=== PATIENT | female | born 1965 | race Caucasian/White ===

== ENCOUNTER → 2016-09-12 | Outpatient (CLI) | payer BC ==
[2016-09-12 15:37] LABS: Blood Urea Nitrogen 21 mg/dL (7-17); Non-African American GFR(MDRD) >60 (>60 ml/min/1.73 sqM)
--- NOTE | 2016-09-12 16:38 | CT ---
EXAMINATION TYPE: CT brain wo/w con DATE OF EXAM: 09/12/2016 4:31 PM COMPARISON: NONE HISTORY: Headache Automated exposure control for dose reduction was used. CONTRAST: 100 mL Omnipaque 300 FINDINGS: There is no abnormal enhancing mass or midline shift identified. The ventricles and sulci are within normal limits in size. The globes are intact and the visualized sinuses are clear. Partially empty sella turcica noted. No enhancing mass. No midline shift. IMPRESSION: No acute process.
== END | disposition home or self-care (01) ==
LOC: RADCTMAIN 15:04
PROVIDERS: ATTEND Family Medicine
DX: R51 Headache (principal); Z13.9 Encounter for screening, unspecified
CPT/HCPCS: 82565; 84520; 70470; 36415; Q9967

== ENCOUNTER → 2016-10-16 | Outpatient (CLI) | payer BC ==
--- NOTE | 2016-10-16 11:03 | MM ---
Reason for exam: history of breast cancer, mastectomy. Last mammogram was performed 1 year and 2 months ago. History: Patient has history of breast cancer at age 49. Mastectomy of the right breast, March 2015. Chemotherapy, September 2014. Malignant MG stereo VAD BX RT of the right breast, August 18, 2014. Malignant US biopsy breast VAD RT of the right breast, August 18, 2014. Taking antineoplastic for 1 year. Physical Findings: Nurse did not find any significant physical abnormalities on exam. MG Diagnostic Mammo LT w CAD CC and MLO view(s) were taken of the left breast. Prior study comparison: August 22, 2015, left breast MG 3d diag mammo w/cad LT. August 18, 2014, right breast MG diagnostic mammo RT w CAD. The breast tissue is extremely dense which could obscure a lesion on mammography. Finding: There are typically benign round calcifications in the left breast. There is no discrete abnormality. ASSESSMENT: Benign, BI-RAD 2 RECOMMENDATION: Follow-up diagnostic mammogram of the left breast in 1 year.
== END | disposition home or self-care (01) ==
LOC: RADMAMWWP 10:19
PROVIDERS: ATTEND Internal Medicine Hematology & Oncology
DX: Z08 Encounter for follow-up examination after completed treatment for malignant neoplasm (principal); Z85.3 Personal history of malignant neoplasm of breast

== ENCOUNTER → 2018-02-06 | Outpatient (CLI) | payer BC ==
--- NOTE | 2018-02-07 07:49 | MM ---
Reason for exam: additional evaluation requested from prior study. Last mammogram was performed 1 year and 4 months ago. History: Patient is postmenopausal and has history of breast cancer at age 49. Family history of breast cancer in 2 maternal cousins. Mastectomy of the right breast, March 2015. Chemotherapy, September 2014. Malignant MG stereo VAD BX RT of the right breast, August 18, 2014. Malignant US biopsy breast VAD RT of the right breast, August 18, 2014. Reconstruction of the right breast. Reduction of the left breast. Taking antineoplastic for 1 year. Physical Findings: Nurse did not find any significant physical abnormalities on exam. MG Diagnostic Mammo LT w CAD CC, MLO, LM, spot compression CC, and spot compression MLO view(s) were taken of the left breast. Prior study comparison: October 16, 2016, left breast MG diagnostic mammo LT w CAD. August 22, 2015, left breast MG 3d diag mammo w/cad LT. 7cm from nipple there is a focal asymmetry that persists on additional views in left upper outer quadrant. These results were verbally communicated with the patient and result sheet given to the patient on 02/06/18. ASSESSMENT: Incomplete: need additional imaging evaluation, BI-RAD 0 RECOMMENDATION: Ultrasound of the left breast. (upper outer quadrant)
--- NOTE | 2018-02-07 07:56 | USB ---
Reason for exam: additional evaluation requested from abnormal screening. History: Patient is postmenopausal and has history of breast cancer at age 49. Family history of breast cancer in 2 maternal cousins. Mastectomy of the right breast, March 2015. Chemotherapy, September 2014. Malignant MG stereo VAD BX RT of the right breast, August 18, 2014. Malignant US biopsy breast VAD RT of the right breast, August 18, 2014. Reconstruction of the right breast. Reduction of the left breast. Taking antineoplastic for 1 year. US Breast Limited LT Left limited breast ultrasound including focal area of concern, retroareolar and axilla demonstrates a 4 x 3 x 4mm oval, cystic lesion at 2 o'clock, a 7mm oval lymph node at 2 o'clock and a 8mm oval lymph node at 2 o'clock. These results were verbally communicated with the patient and result sheet given to the patient on 02/06/18. ASSESSMENT: Benign, BI-RAD 2 RECOMMENDATION: Follow-up diagnostic mammogram of the left breast in 6 months.
== END | disposition home or self-care (01) ==
LOC: RADMAMWWP 14:52
PROVIDERS: ATTEND Internal Medicine Hematology & Oncology
DX: Z08 Encounter for follow-up examination after completed treatment for malignant neoplasm (principal); Z85.3 Personal history of malignant neoplasm of breast; R92.8 Other abnormal and inconclusive findings on diagnostic imaging of breast
CPT/HCPCS: 77065

== ENCOUNTER → 2018-09-12 | Outpatient (CLI) | payer BC ==
--- NOTE | 2018-09-12 14:37 | XR ---
EXAMINATION TYPE: XR Hip Complete LT DATE OF EXAM: 09/12/2018 COMPARISON: NONE HISTORY: Pain TECHNIQUE: 2 views submitted FINDINGS: There is no evidence of erosive change or acute fracture. There is mild concentric narrowing the joint space. Hypertrophic change of the acetabulum can result in femoral acetabular impingement. Vascular calcifications are seen. IMPRESSION: 1. No evidence of acute fracture or dislocation. 2. Left hip arthropathy correlate for femoral acetabular impingement.
== END | disposition home or self-care (01) ==
LOC: RADXRMAIN 13:59
PROVIDERS: ATTEND Family Medicine
DX: M16.12 Unilateral primary osteoarthritis, left hip (principal)
CPT/HCPCS: 73502

== ENCOUNTER → 2019-03-05 | Outpatient (CLI) | payer BC ==
[2019-03-05 08:56] VITALS: BP 131/84; PULSE 88; RESP 16; TEMP 97.9; BMI 33.7
--- NOTE | 2019-03-05 10:07 | P.GSHP ---
History of Present Illness H&P Date: 03/05/19 Chief Complaint: abnormal mammogram left breast Eryn is a 53 year old white female who underwent a right mastectomy in 2015, she had pre-operative chemotherapy. She states no nodes involved. She states it was a Stage II cancer. The patient had immediate reconstruction done. She additionally had a reduction of the contralateral breast. She has done well with no complaints related to her breast. On a recent mammogram performed 03-05-19 she was noted to have a 3 mm lesion in the left breast on the 3-D mammogram. This was not seen on ultrasound. It was recommended by radiology she undergo a 3-D stereotactic core biopsy. She does not feel anything in her breast. Patient had genetic testing which was negative. Family History: 1. patient status post right breast cancer 2. maternal grandfather: colon 3. maternal aunt: colon cancer 4. 3 maternal cousin: breast cancer Hormonal History: menarche: 13 2 miscarriages, first live at 25 breast fed: yes menopause: 51 BCP: 2 years hormones: none Past Surgical History: 1. Right mastectomy, reconstruction, left breast reduction 2. 2 C-sections 3. Exploratory laparotomy for endometriosis 4. tendon left thumb 5. port placement for chemotherapy/and then removed Past Medical History: 1. type 2 DM 2. hypothyroid 3. HTN Social History: smoke: none alcohol: socially drugs: none - Constitutional Constitutional: Denies chills, Denies fever - EENT Eyes: denies blurred vision, denies pain Ears: deny: decreased hearing, tinnitus Ears, nose, mouth and throat: Denies headache, Denies sore throat - Breasts Breasts: bilateral: as per HPI - Cardiovascular Cardiovascular: Reports high blood pressure - Respiratory Respiratory: Denies cough, Denies 7 - Gastrointestinal Gastrointestinal: Denies abdominal pain, Denies diarrhea, Denies nausea, Denies vomiting - Genitourinary (Female) Genitourinary: Denies dysuria, Denies hematuria - Menstruation Menstruation: Reports postmenopausal - Musculoskeletal Musculoskeletal: Denies myalgias - Integumentary Integumentary: Denies pruritus, Denies rash - Neurological Neurological: Denies numbness, Denies weakness - Psychiatric Psychiatric: Denies anxiety, Denies depression - Endocrine Comment: DM, hypothyroid - Hematologic/Lymphatic Comment: none - Allergic/Immunologic Allergic/Immunologic: Reports seasonal allergies Past Medical History Past Medical History: Cancer, Diabetes Mellitus, Hypertension Additional Past Medical History / Comment(s): BREAST CA 08/2014 History of Any Multi-Drug Resistant Organisms: None Reported Past Surgical History: Section, Orthopedic Surgery Additional Past Surgical History / Comment(s): C-S X2. EXP LAP. PORT-A-CATH 09/2014. Past Anesthesia/Blood Transfusion Reactions: No Reported Reaction Past Psychological History: No Psychological Hx Reported Smoking Status: Former smoker Past Alcohol Use History: Occasional Past Drug Use History: None Reported - Past Family History Father Family Medical History: CVA/TIA Mother Family Medical History: Cancer Medications and Allergies Home Medications Medication Instructions Recorded Confirmed Type Linagliptin [Tradjenta] 5 mg PO QAM 09/22/14 03/05/19 History metFORMIN HCL [Glucophage] 2,000 mg PO AC-SUPPER 09/22/14 03/05/19 History Loratadine [Claritin] 10 mg PO DAILY 10/10/15 03/05/19 History Levothyroxine Sodium [Synthroid] 112 mcg PO DAILY 03/05/19 03/05/19 History Losartan/Hydrochlorothiazide 1 each PO 03/05/19 History [Losartan-Hctz 100-25 mg Tab] Allergies Allergy/AdvReac Type Severity Reaction Status Date / Time Penicillins Allergy Unknown Verified 03/05/19 08:56 Childhood FLORINA Inhibitors AdvReac Cough Verified 03/05/19 08:56 Surgical - Exam Vital Signs Temp Pulse Resp BP Pulse Ox 97.9 F 88 16 131/84 97 03/05/19 08:50 03/05/19 08:50 03/05/19 08:50 03/05/19 08:50 03/05/19 08:50 BMI 33.7 - General well developed, well nourished, no distress - Eyes normal ocular movement - ENT no hearing loss, no congestion - Neck no masses, trachea midline - Respiratory normal expansion, normal respiratory effort, clear to auscultation - Cardiovascular Rhythm: regular Heart Sounds: normal: S1, S2 - Abdomen Abdomen: soft, non tender, no guarding, no rigid, no rebound - Integumentary normal turgor Dark nevus just under the left breast Bra line - Neurologic no disoriented, no combative - Musculoskeletal normal gait, normal posture - Psychiatric oriented to time, oriented to person, oriented to place, speech is normal, memory intact breast exam: right breast: Status post mastectomy, skin no evidence of recurrence Right axilla: No adenopathy of concern Left breast: Status post reduction well-healed scars from reduction mammoplasty, fibrocystic changes, slight nodularity near the area of scar believed to be reactive related to the scar, no dominant masses or nodules of concern Left axilla: No adenopathy of concern Results Mammogram and ultrasound report reviewed, mammogram reviewed with Dr. Chavez Assessment and Plan Assessment: Impression: 1. Mammographic abnormality left breast 2. Personal history of right breast cancer status post chemotherapy and mastectomy 3. History of hypertension 4. History of diabetes 5. History of hypothyroidism 6. Family history of breast cancer 7. Family history of colon cancer 8. Skin lesion left chest wall at bra line Risk and benefits of stereotactic core biopsy 2 the patient. She wishes to proceed. This will be scheduled with Dr. Chavez in the near future. Plan: 1. 3-D stereotactic core biopsy left breast 2. Excision of dark nevus near left breast bra line 3. Follow-up here after 3-D stereotactic core biopsy of left breast Cc: Dr. Rodrigues
== END ==
LOC: WWCWWP 08:16
PROVIDERS: ATTEND Surgery
DX: Z53.9 Procedure and treatment not carried out, unspecified reason (principal)

== ENCOUNTER → 2019-03-05 | Outpatient (CLI) | payer BC ==
--- NOTE | 2019-03-05 08:27 | MM ---
Reason for exam: additional evaluation requested from prior study. Last mammogram was performed 7 months ago. History: Patient is postmenopausal and has history of breast cancer at age 49. Family history of breast cancer in 2 maternal cousins. Combination implant in the right breast, 2016. Mastectomy of the right breast, March 2015. Chemotherapy, September 2014. Malignant MG stereo VAD BX RT of the right breast, August 18, 2014. Malignant US biopsy breast VAD RT of the right breast, August 18, 2014. Reconstruction of the right breast. Reduction of the left breast. Taking antineoplastic for 1 year. Physical Findings: Nurse did not find any significant physical abnormalities on exam. MG 3D Diag Mammo W/Cad LT CC, MLO, and ML view(s) were taken of the left breast. Prior study comparison: August 08, 2018, left breast MG 3d diag mammo w/cad LT. February 06, 2018, left breast MG diagnostic mammo LT w CAD. The breast tissue is heterogeneously dense. This may lower the sensitivity of mammography. There is a 3mm lower inner quadrant mass 3 cm from nipple on the left and surrounding distortion on 3D CC images. This persists on the lateral view. Ultrasound will be done. Benign appearing calcifications in the left breast. Post surgical change on the left. These results were verbally communicated with the patient and result sheet given to the patient on 03/05/19. ASSESSMENT: Incomplete: need additional imaging evaluation, BI-RAD 0 RECOMMENDATION: Ultrasound of the left breast. Lower inner quadrant.
--- NOTE | 2019-03-05 08:27 | USB ---
Reason for exam: additional evaluation requested from abnormal screening. History: Patient is postmenopausal and has history of breast cancer at age 49. Family history of breast cancer in 2 maternal cousins. Combination implant in the right breast, 2016. Mastectomy of the right breast, March 2015. Chemotherapy, September 2014. Malignant MG stereo VAD BX RT of the right breast, August 18, 2014. Malignant US biopsy breast VAD RT of the right breast, August 18, 2014. Reconstruction of the right breast. Reduction of the left breast. Taking antineoplastic for 1 year. US Breast Limited LT Left limited breast ultrasound including focal area of concern, retroareolar and axilla demonstrates no cystic or solid lesion seen. Persistent distortion on CC 14/72 with mass on MLO 44/72. 3D biopsy recommended as there is no sonographic correlate. These results were verbally communicated with the patient and result sheet given to the patient on 03/05/19. ASSESSMENT: Suspicious, BI-RAD 4 RECOMMENDATION: Stereotactic core biopsy of the left breast. (lower inner quadrant) Called Dr. Norris with mammographic findings and has scheduled an appointment for the patient for 03/05/[address] Foreman. PRELIMINARY REPORT CALLED AND FAXED TO DR. FOREMAN ON 03/05/19.
== END | disposition home or self-care (01) ==
LOC: RADMAMWWP 07:03
PROVIDERS: ATTEND Internal Medicine Hematology & Oncology
DX: R92.8 Other abnormal and inconclusive findings on diagnostic imaging of breast (principal); Z85.3 Personal history of malignant neoplasm of breast
CPT/HCPCS: 77061; 77065

== ENCOUNTER → 2019-10-12 | Outpatient (CLI) | payer BC ==
--- NOTE | 2019-10-13 07:30 | MM ---
Reason for exam: follow-up at short interval from prior study. Last mammogram was performed 7 months ago. History: Patient is postmenopausal and has history of breast cancer at age 49. Family history of breast cancer in 2 maternal cousins. Combination implant in the right breast, 2016. Mastectomy of the right breast, March 2015. Chemotherapy, September 2014. Malignant MG stereo VAD BX RT of the right breast, August 18, 2014. Malignant US biopsy breast VAD RT of the right breast, August 18, 2014. Reconstruction of the right breast. Reduction of the left breast. Taking antineoplastic for 1 year. Physical Findings: Nurse did not find any significant physical abnormalities on exam. MG 3D Diag Mammo W/Cad LT CC, MLO, and ML view(s) were taken of the left breast. Prior study comparison: March 05, 2019, left breast MG 3d diag mammo w/cad LT. August 08, 2018, left breast MG 3d diag mammo w/cad LT. The breast tissue is heterogeneously dense. This may lower the sensitivity of mammography. Stable left lower inner quadrant distortion from 2018, possibly post reduction change. No sonographic correlate. Not seen on 3D biopsy at [facility]. These results were verbally communicated with the patient and result sheet given to the patient on 10/12/19. ASSESSMENT: Probably benign, BI-RAD 3 RECOMMENDATION: Follow-up diagnostic mammogram of the left breast in 6 months. Breast MRI could be considered.
== END | disposition home or self-care (01) ==
LOC: RADMAMWWP 15:29
PROVIDERS: ATTEND Surgery
DX: Z08 Encounter for follow-up examination after completed treatment for malignant neoplasm (principal); Z85.3 Personal history of malignant neoplasm of breast
CPT/HCPCS: 77061; 77065

== ENCOUNTER 2020-01-10 17:19 | Emergency (ER) | payer BC ==
[2020-01-10 17:25] VITALS: TEMP 98.4
--- NOTE | 2020-01-10 18:07 | ED ---
General Adult HPI - General Chief complaint: Neuro Symptoms/Deficit Stated complaint: facial numbness Time Seen by Provider: 01/10/20 17:30 Source: patient, RN notes reviewed, old records reviewed Mode of arrival: ambulatory Limitations: no limitations - History of Present Illness Initial comments: This is a 54-year-old female with past medical history significant for diabetes and high blood pressure. Patient states on Saturday evening she had some tingling to the left side of her tongue and then on Saturday she had tingling in her lips and tongue and noticed a metallic-like taste when she was eating. Patient states today she noticed some left-sided facial droop and also difficulty closing her eyelid on the left is harder she did on the right. Patient denies any headache patient denies any extremity weakness or numbness patient denies any coordination problem per patient denies any speech problems. Patient denies any recent fever chills or cough. Patient denies abdominal pain patient denies nausea vomiting diarrhea. Patient denies chest pain difficulty breathing first breath. - Related Data Home Medications Medication Instructions Recorded Confirmed Linagliptin [Tradjenta] 5 mg PO DAILY 09/22/14 01/10/20 Levothyroxine Sodium [Synthroid] 112 mcg PO DAILY 03/05/19 01/10/20 Atorvastatin [Lipitor] 10 mg PO HS 10/21/19 01/10/20 Cholecalciferol (Vitamin D3) 2,000 unit PO DAILY 01/10/20 01/10/20 [Vitamin D3] Losartan-Hctz 50-12.5 mg [Hyzaar 1 tab PO AC-BID 01/10/20 01/10/20 50-12.5] Multivitamins, Thera [Multivitamin 1 tab PO BID 01/10/20 01/10/20 (formulary)] Vit C/E/Zn/Coppr/Lutein/Zeaxan 1 cap PO BID 01/10/20 01/10/20 [Preservision Areds 2 Softgel] metFORMIN HCL ER [Glucophage Xr] 2,000 mg PO PC-SUPPER 01/10/20 01/10/20 Previous Rx's Medication Instructions Recorded predniSONE [Deltasone] 30 mg PO BID #22 tab 01/10/20 valACYclovir HCL [Valacyclovir] 1,000 mg PO TID 7 Days tab 01/10/20 Allergies Allergy/AdvReac Type Severity Reaction Status Date / Time Penicillins Allergy Unknown Verified 01/10/20 18:44 Childhood FLORINA Inhibitors AdvReac Cough Verified 01/10/20 18:44 Review of Systems ROS Statement: Those systems with pertinent positive or pertinent negative responses have been documented in the HPI. ROS Other: All systems not noted in ROS Statement are negative. Past Medical History Past Medical History: Cancer, Diabetes Mellitus, Hypertension Additional Past Medical History / Comment(s): BREAST CA 08/2014 History of Any Multi-Drug Resistant Organisms: None Reported Past Surgical History: Section, Orthopedic Surgery Additional Past Surgical History / Comment(s): C-S X2. EXP LAP. PORT-A-CATH 09/2014. Past Anesthesia/Blood Transfusion Reactions: No Reported Reaction Past Psychological History: No Psychological Hx Reported Smoking Status: Former smoker Past Alcohol Use History: Occasional Past Drug Use History: None Reported - Past Family History Father Family Medical History: CVA/TIA Mother Family Medical History: Cancer General Exam - General Exam Comments Initial Comments: GENERAL: Patient is well-developed and well-nourished. Patient is nontoxic and well- hydrated and is in no acute distress. ENT: Neck is soft and supple. No significant lymphadenopathy is noted. Oropharynx is clear. Moist mucous membranes. Neck has full range of motion without eliciting any pain. EYES: The sclera were anicteric and conjunctiva were pink and moist. Extraocular movements were intact and pupils were equal round and reactive to light. Eyelids were unremarkable. PULMONARY: Unlabored respirations. Good breath sounds bilaterally. No audible rales rhonchi or wheezing was noted. CARDIOVASCULAR: There is a regular rate and rhythm without any murmurs gallops or rubs. ABDOMEN: Soft and nontender with normal bowel sounds. No palpable organomegaly was noted. There is no palpable pulsatile mass. SKIN: Skin is clear with no lesions or rashes and otherwise unremarkable. NEUROLOGIC: Patient is alert and oriented x3. Patient has some slight facial droop on the left side by the mouth she also has weakness of the upper eyelid when she is trying to close it and there is some slight reduced forehead movement when compared to the right. Patient has normal strength and sensation of all 4 extremities. MUSCULOSKELETAL: Normal extremities with adequate strength and full range of motion. LYMPHATICS: No significant lymphadenopathy is noted PSYCHIATRIC: Normal psychiatric evaluation. Limitations: no limitations Course Vital Signs 01/10/20 17:22 Temperature 98.4 F Pulse Rate 95 Respiratory 18 Rate Blood Pressure 142/105 O2 Sat by Pulse 99 Oximetry Medical Decision Making - Medical Decision Making CT of the brain shows no acute abnormality. Patient was having classic signs of Orellana's palsy with the forehead involvement as well as the eyelid and facial droop and also the perceived change in taste. Disposition Clinical Impression: Orellana's palsy Disposition: HOME SELF-CARE Instructions (If sedation given, give patient instructions): Orellana Palsy (ED) Prescriptions: predniSONE [Deltasone] 30 mg PO BID #22 tab valACYclovir HCL [Valacyclovir] 1,000 mg PO TID 7 Days tab Is patient prescribed a controlled substance at d/c from ED?: No Referrals: Dionte Rodriuges DO [Primary Care Provider] - 1-2 days Time of Disposition: 18:57
--- NOTE | 2020-01-10 18:43 | CT ---
EXAMINATION TYPE: CT brain wo con DATE OF EXAM: 01/10/2020 COMPARISON: 09/12/2016 HISTORY: Left sided facial droop and numbness to tongue. CT DLP: 1066.4 mGycm Automated exposure control for dose reduction was used. Ventricles and sulci appear normal. There is no mass effect nor midline shift. There is no sign of in tracranial hemorrhage. The calvarium is intact. There is no evidence of cerebral edema. IMPRESSION: Normal unenhanced head CT scan. No change.
[2020-01-10 19:12] VITALS: PULSE 76
[2020-01-10 19:26] VITALS: BP 110/71; RESP 16
== END 2020-01-10 19:31 | disposition home or self-care (01) ==
LOC: EC 17:19
DX: G51.0 Bell's palsy (principal); E11.9 Type 2 diabetes mellitus without complications; I10 Essential (primary) hypertension; Z79.899 Other long term (current) drug therapy; Z79.84 Long term (current) use of oral hypoglycemic drugs; Z88.0 Allergy status to penicillin; Z88.8 Allergy status to other drugs, medicaments and biological substances; Z85.3 Personal history of malignant neoplasm of breast; Z87.891 Personal history of nicotine dependence
CPT/HCPCS: 70450; 99284

== ENCOUNTER → 2020-04-11 | Outpatient (CLI) | payer BC ==
--- NOTE | 2020-04-11 07:48 | MM ---
Reason for exam: follow-up at short interval from prior study. Last mammogram was performed 6 months ago. History: Patient is postmenopausal and has history of breast cancer at age 49. Family history of breast cancer in 2 maternal cousins. Combination implant in the right breast, 2016. Mastectomy of the right breast, March 2015. Chemotherapy, September 2014. Malignant MG stereo VAD BX RT of the right breast, August 18, 2014. Malignant US biopsy breast VAD RT of the right breast, August 18, 2014. Breast lift of the left breast. Reconstruction of the right breast. Reductions. Reduction of the left breast. Taking antineoplastic for 1 year. Physical Findings: Nurse did not find any significant physical abnormalities on exam. MG 3D Diag Mammo W/Cad LT CC and MLO view(s) were taken of the left breast. Prior study comparison: October 12, 2019, left breast MG 3d diag mammo w/cad LT. March 05, 2019, left breast MG 3d diag mammo w/cad LT. Finding #1: Stable architectural distortion in the lower quadrant, anterior position of the left breast consistent with known reduction changes. Finding #2: There are typically benign round calcifications in the left breast. There is no discrete abnormality. These results were verbally communicated with the patient and result sheet given to the patient on 04/11/20. ASSESSMENT: Benign, BI-RAD 2 RECOMMENDATION: Follow-up diagnostic mammogram of the left breast in 1 year.
== END | disposition home or self-care (01) ==
LOC: RADMAMWWP 06:58
PROVIDERS: ATTEND Surgery
DX: R92.8 Other abnormal and inconclusive findings on diagnostic imaging of breast (principal)
CPT/HCPCS: 77061; 77065

== ENCOUNTER → 2020-04-29 | Outpatient (CLI) | payer BC ==
[2020-04-29 09:25] VITALS: BP 116/79; PULSE 83; RESP 20; TEMP 98.4
--- NOTE | 2020-04-29 10:08 | P.PN ---
Subjective Progress Note Date: 04/29/20 Principal diagnosis: right breast cancer status post mastectomy reconstruction/ left breast reduction Eryn is a 53 year old white female who underwent a right mastectomy in 2014, she had pre-operative chemotherapy. She states no nodes involved. She states it was a Stage II cancer. The patient had immediate reconstruction done. She did not have any radiation therapy. She additionally had a reduction of the contralateral breast. She has done well with no complaints related to her breast. On a recent mammogram performed 03-05-19 she was noted to have a 3 mm lesion in the left breast on the 3-D mammogram. This was not seen on ultrasound. It was recommended by radiology she undergo a 3-D stereotactic core biopsy. An attempt at 3-D stereo biopsy was performed on . The area of concern could not be well delineated and this was canceled with a 6 month follow-up mammogram recommended. She underwent a repeat left breast mammogram on 2319. This reveals stable left lower inner quadrant distortion from 2017, no sonographic correlate, not seen on biopsy attempt at [facility] . The recommendation was that this is probable benign BIRADS 3 follow-up diagnostic mammogram of the left breast in 6 months and consider breast MRI. She does not feel anything in her breast. Patient had genetic testing which was negative. She underwent a left breast 3-D diagnostic mammogram on 8319. This was benign with stable architectural distortion in the lower quadrant anterior portion of the left breast consistent with known reduction changes and some typical benign round calcifications with no discrete abnormality. This was considered benign BIRADS 2 and follow-up diagnostic mammogram of the left breast in 1 year was recommended. The patient does not complain of any loss masses or nodules in her breasts for which she is concerned. Likewise nothing on the right chest wall for which she is concerned. She is not taking any anti-hormone medication, her tumor was hormone receptor negative. Family History: 1. patient status post right breast cancer 2. maternal grandfather: colon 3. maternal aunt: colon cancer 4. 3 maternal cousin: breast cancer Hormonal History: menarche: 13 2 miscarriages, first live at 25 breast fed: yes menopause: 51 BCP: 2 years hormones: none Past Surgical History: 1. Right mastectomy, reconstruction, left breast reduction 2. 2 C-sections 3. Exploratory laparotomy for endometriosis 4. tendon left thumb 5. port placement for chemotherapy/and then removed Past Medical History: 1. type 2 DM 2. hypothyroid 3. HTN Social History: smoke: none alcohol: socially drugs: none - Constitutional Constitutional: Denies chills, Denies fever - EENT Eyes: denies blurred vision, denies pain Ears: deny: decreased hearing, tinnitus Ears, nose, mouth and throat: Denies headache, Denies sore throat - Breasts Breasts: bilateral: as per HPI - Cardiovascular Cardiovascular: Reports high blood pressure, high cholesterol - Respiratory Respiratory: Denies cough, - Gastrointestinal Gastrointestinal: Denies abdominal pain, Denies diarrhea, Denies nausea, Denies vomiting - Genitourinary (Female) Genitourinary: Denies dysuria, Denies hematuria - Menstruation Menstruation: Reports postmenopausal - Musculoskeletal Musculoskeletal: Denies myalgias - Integumentary Integumentary: Denies pruritus, Denies rash - Neurological Neurological: Denies numbness, Denies weakness; bells palsy - Psychiatric Psychiatric: Denies anxiety, Denies depression - Endocrine Comment: DM, hypothyroid - Hematologic/Lymphatic Comment: none - Allergic/Immunologic Allergic/Immunologic: Reports seasonal allergies Objective - Vital Signs Vital signs: Vital Signs Temp 98.4 F 04/29/20 09:23 Pulse 83 04/29/20 09:23 Resp 20 04/29/20 09:23 BP 116/79 04/29/20 09:23 Pulse Ox 98 04/29/20 09:23 Intake & Output 04/28/20 04/29/20 04/29/20 18:59 06:59 18:59 Weight 95.254 kg - Exam BMI 33.4 - Constitutional General appearance: Present: average body habitus - EENT Eyes: Present: EOMI ENT: Present: hearing grossly normal - Neck Neck: Present: normal ROM - Respiratory Respiratory: bilateral: CTA - Cardiovascular Rhythm: regular Heart sounds: normal: S1, S2 - Gastrointestinal General gastrointestinal: Present: normal bowel sounds, soft - Integumentary Integumentary: Present: normal turgor - Musculoskeletal Musculoskeletal: Present: gait normal - Psychiatric Psychiatric: Present: A&O x's 3, appropriate affect, intact judgment & insight - Additional findings Additional findings: breast exam: BRA: 40D was 42DD inspection: Postsurgical changes right chest wall, status post mastectomy and reconstruction, right breast remains smaller than left breast, left breast reduction mastopexy scars clean and dry and well-healed Palpation: Right breast: Right chest wall no evidence of recurrent cancer Right axilla: No adenopathy of concern Left breast: Multi-positional exam fibrocystic changes, well-healed scars from prior reduction mastopexy Left axilla: No adenopathy of concern There is a dark nevus just under the left breast for which excision was recommended Assessment and Plan Assessment: Impression: Patient status post right breast mastectomy 2014 for stage II right breast cancer with immediate reconstruction 2. Left breast reduction mastopexy 3. No evidence of recurrent cancer at this time 4. Recent left breast mammogram benign BIRADS 2 and repeat mammogram in 1 year recommended of the left breast this was a320 5. Dark nevus just under her left breast Plan: 1. Continued surveillance to rule out recurrent breast cancer follow-up 1 year here 2. Continued follow-up medical oncology 3. Excision of nevus under left breast Patient understands risks and benefits of excision of nevus and wishes to proceed this will be scheduled in the near future CC: Dr. Rodrigues encounter 20 minutes with > 50% of time in planning and counselling
== END | disposition home or self-care (01) ==
LOC: WWCWWP 09:09
PROVIDERS: ATTEND Surgery
DX: Z53.9 Procedure and treatment not carried out, unspecified reason (principal)

== ENCOUNTER → 2020-06-16 | Outpatient (CLI) | payer BC ==
--- NOTE | 2020-06-16 10:36 | P.OP ---
Date of Procedure: 06/16/20 Preoperative Diagnosis: Nevus under left breast Postoperative Diagnosis: Same Procedure(s) Performed: Excision nevis under her left breast Anesthesia: local Surgeon: Jacqui Pardo Pathology: other (skin lesion) Condition: stable Disposition: same day Indications for Procedure: Dark nevus under her left breast Description of Procedure: The area of concern under the left breast was prepped using Betadine. 1% lidocaine was used to anesthetize the area of concern. Wide excision was performed. The lesion was 2 cm in size. The skin was closed using nylon suture. The specimen was sent to pathology. Patient tolerated procedure in stable condition. We'll follow up in 1 week
== END | disposition home or self-care (01) ==
LOC: WWCWWP 10:40
PROVIDERS: ATTEND Surgery
DX: L82.1 Other seborrheic keratosis (principal)
CPT/HCPCS: 88305

== ENCOUNTER → 2020-06-23 | Outpatient (CLI) | payer BC ==
[2020-06-23 11:17] VITALS: BP 117/81; PULSE 83; RESP 16; TEMP 98.2
--- NOTE | 2020-06-23 11:24 | P.PN ---
Progress Note - Text Progress Note Date: 06/23/20 Eryn is status post excision of a lesion just inferior to the left breast on . Pathology revealed seborrheic keratosis. Patient tolerated the procedure in stable condition she is doing well and is here for suture removal. Incision clean and dry Impression/Plan: Suture removal under left breast September left breast 3D mammogram and follow up at that time; this is secondary to an attempted 3-D stereo biopsy in April which was canceled Continue to follow with Dr. Norris
== END | disposition home or self-care (01) ==
LOC: WWCWWP 06-16 10:01
PROVIDERS: ATTEND Surgery
DX: Z53.9 Procedure and treatment not carried out, unspecified reason (principal)

== ENCOUNTER → 2020-09-20 | Outpatient (CLI) | payer BC | END | disposition home or self-care (01) | LOC: RADMAMWWP 08:26 | PROVIDERS: ATTEND Surgery | DX: Z53.9 Procedure and treatment not carried out, unspecified reason (principal) ==

== ENCOUNTER → 2020-10-20 | Outpatient (CLI) | payer BC ==
--- NOTE | 2020-10-20 10:49 | MM ---
Reason for exam: additional evaluation requested from prior study. Last mammogram was performed 6 months ago. History: Patient is postmenopausal and has history of breast cancer at age 49. Family history of breast cancer in maternal cousin at age 56, breast cancer in maternal cousin at age 47, and breast cancer in maternal cousin at age 46. Combination implant in the right breast, 2016. Mastectomy of the right breast, March 2015. Chemotherapy, September 2014. Malignant MG stereo VAD BX RT of the right breast, August 18, 2014. Malignant US biopsy breast VAD RT of the right breast, August 18, 2014. Breast lift of the left breast. Reconstruction of the right breast. Reductions. Reduction of the left breast. Taking antineoplastic for 1 year. Physical Findings: Nurse did not find any significant physical abnormalities on exam. MG 3D Diag Mammo W/Cad LT CC and MLO view(s) were taken of the left breast. Prior study comparison: April 11, 2020, left breast MG 3d diag mammo w/cad LT. October 12, 2019, left breast MG 3d diag mammo w/cad LT. The breast tissue is heterogeneously dense. This may lower the sensitivity of mammography. No significant new findings when compared with previous films. These results were verbally communicated with the patient and result sheet given to the patient on 10/20/20. ASSESSMENT: Benign, BI-RAD 2 RECOMMENDATION: Routine screening mammogram of the left breast in 6 months. Back on schedule.
== END | disposition home or self-care (01) ==
LOC: RADMAMWWP 08:22
PROVIDERS: ATTEND Surgery
DX: R92.8 Other abnormal and inconclusive findings on diagnostic imaging of breast (principal)
CPT/HCPCS: 77061; 77065

== ENCOUNTER → 2020-10-27 | Outpatient (CLI) | payer BC ==
[2020-10-27 15:03] VITALS: BP 118/74; PULSE 98; RESP 18; TEMP 98.1
--- NOTE | 2020-10-27 15:26 | P.PN ---
Subjective Progress Note Date: 10/27/20 Principal diagnosis: right breast cancer stage II ght breast cancer status post mastectomy reconstruction/ left breast reduction Eryn is a 53 year old white female who underwent a right mastectomy in 2014, she had pre-operative chemotherapy. She states no nodes involved. She states it was a Stage II cancer. The patient had immediate reconstruction done. She did not have any radiation therapy. She additionally had a reduction of the contralateral breast. She has done well with no complaints related to her breast. On a recent mammogram performed 03-05-19 she was noted to have a 3 mm lesion in the left breast on the 3-D mammogram. This was not seen on ultra sound. It was recommended by radiology she undergo a 3-D stereotactic core biopsy. An attempt at 3-D stereo biopsy was performed on . The area of concern could not be well delineated and this was canceled with a 6 month follow-up mammogram recommended. She underwent a repeat left breast mammogram on 2319. This reveals stable left lower inner quadrant distortion from 2017, no sonographic correlate, not seen on biopsy attempt at [facility] . The recommendation was that this is probable benign BIRADS 3 follow-up diagnostic mammogram of the left breast in 6 months and consider breast MRI. She does not feel anything in her breast. Patient had genetic testing which was negative. She underwent a left breast 3-D diagnostic mammogram on 8319. This was benign with stable architectural distortion in the lower quadrant anterior portion of the left breast consistent with known reduction changes and some typical benign round calcifications with no discrete abnormality. This was considered benign BIRADS 2 and follow-up diagnostic mammogram of the left breast in 1 year was recommended. The patient does not complain of any lumps masses or nodules in her breasts for which she is concerned. Likewise nothing on the right chest wall for which she is concerned. She is not taking any anti-hormone medication, her tumor was hormone receptor negative. The patient had a left breast mammogram done on 10-20-20. This was benign BIRADS 2. She does not feel anything of concern in her breast. She is not complaining of any nipple discharge or skin changes. She has no lesions of concern on the skin of the right chest wall. Family History: 1. patient status post right breast cancer 2. maternal grandfather: colon 3. maternal aunt: colon cancer 4. 3 maternal cousin: breast cancer Hormonal History: menarche: 13 2 miscarriages, first live at 25 breast fed: yes menopause: 51 BCP: 2 years hormones: none Past Surgical History: 1. Right mastectomy, reconstruction, left breast reduction 2. 2 C-sections 3. Exploratory laparotomy for endometriosis 4. tendon left thumb 5. port placement for chemotherapy/and then removed Past Medical History: 1. type 2 DM 2. hypothyroid 3. HTN Social History: smoke: none alcohol: socially drugs: none - Constitutional Constitutional: Denies chills, Denies fever - EENT Eyes: denies blurred vision, denies pain Ears: deny: decreased hearing, tinnitus Ears, nose, mouth and throat: Denies headache, Denies sore throat - Breasts Breasts: bilateral: as per HPI - Cardiovascular Cardiovascular: Reports high blood pressure, high cholesterol - Respiratory Respiratory: Denies cough, - Gastrointestinal Gastrointestinal: Denies abdominal pain, Denies diarrhea, Denies nausea, Denies vomiting - Genitourinary (Female) Genitourinary: Denies dysuria, Denies hematuria - Menstruation Menstruation: Reports postmenopausal - Musculoskeletal Musculoskeletal: Denies myalgias - Integumentary Integumentary: Denies pruritus, Denies rash - Neurological Neurological: Denies numbness, Denies weakness; bells palsy - Psychiatric Psychiatric: Denies anxiety, Denies depression - Endocrine Comment: DM, hypothyroid - Hematologic/Lymphatic Comment: none - Allergic/Immunologic Allergic/Immunologic: Reports seasonal allergies Objective - Vital Signs Vital signs: Vital Signs Temp 98.1 F 10/27/20 14:59 Pulse 98 10/27/20 14:59 Resp 18 10/27/20 14:59 BP 118/74 10/27/20 14:59 Pulse Ox 99 10/27/20 14:59 Intake & Output 10/26/20 10/27/20 10/27/20 18:59 06:59 18:59 Weight 97.522 kg - Exam BMI 34.2 - Constitutional General appearance: Present: average body habitus - EENT Eyes: Present: EOMI ENT: Present: hearing grossly normal - Neck Neck: Present: normal ROM - Respiratory Respiratory: bilateral: CTA - Cardiovascular Rhythm: regular Heart sounds: normal: S1, S2 - Gastrointestinal General gastrointestinal: Present: normal bowel sounds, soft - Integumentary Integumentary: Present: normal turgor - Musculoskeletal Musculoskeletal: Present: gait normal - Psychiatric Psychiatric: Present: A&O x's 3, appropriate affect, intact judgment & insight - Additional findings Additional findings: breast exam: BRA: 42D Inspection: Patient status post right mastectomy with reconstruction, right breast smaller than left, left status post reduction well-healed scars from reduction mammoplasty Palpation: Right chest wall no evidence of recurrent cancer Right axilla: No adenopathy of concern Left breast: Multi-positional exam increased fullness at the inframammary ridge in the medial aspect Left axilla: No adenopathy of concern Assessment and Plan Assessment: Impression: 1. type 2 DM 2. hypothyroid 3. HTN 4. Status post right mastectomy for stage II breast cancer with immediate reconstruction The patient did have neoadjuvant chemotherapy she did not have any radiation therapy, she did not have any hormonal therapy 5. Patient continues to follow with medical oncology 6. Increase density of left breast inframammary area area most likely fat necrosis 7. Asymmetry of the breast Plan: 1. Core biopsy area of asymmetry/density left breast inframammary ridge area on the lateral aspect 2. If this is benign repeat left breast mammogram as per radiology a 6 month with repeat examination at that time 3. We have discussed a further reduction procedure of the left breast and the patient is going to consider it at this time 4. ultrasound of left breast CC: Dr. Rodrigues Encounter 20 minutes time spent in reviewing medical records, physical examination, and counseling.
== END | disposition home or self-care (01) ==
LOC: WWCWWP 14:52
PROVIDERS: ATTEND Surgery
DX: Z53.9 Procedure and treatment not carried out, unspecified reason (principal)

== ENCOUNTER → 2020-11-02 | Outpatient (CLI) | payer BC ==
--- NOTE | 2020-11-02 09:58 | USB ---
Reason for exam: clinical finding. History: Patient is postmenopausal and has history of breast cancer at age 49. Family history of breast cancer in maternal cousin at age 56, breast cancer in maternal cousin at age 47, and breast cancer in maternal cousin at age 46. Combination implant in the right breast, 2016. Mastectomy of the right breast, March 2015. Chemotherapy, September 2014. Malignant MG stereo VAD BX RT of the right breast, August 18, 2014. Malignant US biopsy breast VAD RT of the right breast, August 18, 2014. Breast lift of the left breast. Reconstruction of the right breast. Reductions. Reduction of the left breast. Taking antineoplastic for 1 year. Physical Findings: Breast exam performed 10/20/20. US Breast LT Left complete breast ultrasound includes all four quadrants, the retroareolar region and axilla. Finding demonstrates a 2.3 x 0.9 x 2.1cm lymph node at the axilla is mildly enlarged with some lobulated cortical thickening. Patient reports first Covid vaccine administered on 10/12/20. No other solid or cystic lesion seen. These results were verbally communicated with the patient and result sheet given to the patient on 11/02/20. ASSESSMENT: Probably benign, BI-RAD 3 RECOMMENDATION: Ultrasound of the left breast in 2 months. Manage on a clinical basis with regard to any suspicious palpable areas.
== END | disposition home or self-care (01) ==
LOC: RADUSWWP 07:54
PROVIDERS: ATTEND Surgery
DX: N64.4 Mastodynia (principal); Z85.3 Personal history of malignant neoplasm of breast

== ENCOUNTER → 2021-05-04 | Outpatient (CLI) | payer BC ==
--- NOTE | 2021-05-04 11:06 | USB ---
Reason for exam: follow-up at short interval from prior study. History: Patient is postmenopausal and has history of breast cancer at age 49. Family history of breast cancer in maternal cousin at age 56, breast cancer in maternal cousin at age 47, and breast cancer in maternal cousin at age 46. Combination implant in the right breast, 2016. Mastectomy of the right breast, March 2015. Chemotherapy, September 2014. Malignant MG stereo VAD BX RT of the right breast, August 18, 2014. Malignant US biopsy breast VAD RT of the right breast, August 18, 2014. Breast lift of the left breast. Reconstruction of the right breast. Reductions. Reduction of the left breast. Taking antineoplastic for 1 year. Physical Findings: Nurse did not find any significant physical abnormalities on exam. US Breast Axilla LT Left breast axilla ultrasound including focal area of concern, retroareolar and axilla demonstrates a 1.2 x 0.8 x 0.6cm normal appearing lymph node at the axilla. Given that no solid or cystic breast lesion was seen on 11/02/20 ultrasound, patient can have diagnostic mammogram at the time of her annual exam. These results were verbally communicated with the patient and result sheet given to the patient on 05/04/21. ASSESSMENT: Probably benign, BI-RAD 3 RECOMMENDATION: Follow-up diagnostic mammogram of the left breast in 6 months.
== END | disposition home or self-care (01) ==
LOC: RADUSWWP 09:41
PROVIDERS: ATTEND Family Medicine
DX: R92.8 Other abnormal and inconclusive findings on diagnostic imaging of breast (principal); Z78.0 Asymptomatic menopausal state; Z85.3 Personal history of malignant neoplasm of breast; Z80.3 Family history of malignant neoplasm of breast

== ENCOUNTER → 2021-10-23 | Outpatient (CLI) | payer BC ==
--- NOTE | 2021-10-24 08:06 | MM ---
Reason for exam: additional evaluation requested from prior study. Last mammogram was performed 1 year ago. History: Patient is postmenopausal and has history of breast cancer at age 49. Family history of breast cancer in maternal cousin at age 56, breast cancer in maternal cousin at age 47, and breast cancer in maternal cousin at age 46. Combination implant in the right breast, 2016. Mastectomy of the right breast, March 2015. Chemotherapy, September 2014. Malignant MG stereo VAD BX RT of the right breast, August 18, 2014. Malignant US biopsy breast VAD RT of the right breast, August 18, 2014. Breast lift of the left breast. Reconstruction of the right breast. Reductions. Reduction of the left breast. Taking antineoplastic for 1 year. Physical Findings: Nurse did not find any significant physical abnormalities on exam. MG 3D Diag Mammo W/Cad LT CC and MLO view(s) were taken of the left breast. Prior study comparison: October 20, 2020, left breast MG 3d diag mammo w/cad LT. April 11, 2020, left breast MG 3d diag mammo w/cad LT. The breast tissue is heterogeneously dense. This may lower the sensitivity of mammography. Post reduction mammoplasty changes. Stable scattered and regional calcifications left breast. Central asymmetric densities left MLO view. Some asymmetries are see on true lateral but there are no clear persisting abnormality on spot MLO. These results were verbally communicated with the patient and result sheet given to the patient on 10/23/21. ASSESSMENT: Incomplete: need additional imaging evaluation, BI-RAD 0 RECOMMENDATION: Ultrasound of the left breast.
--- NOTE | 2021-10-24 08:07 | USB ---
Reason for exam: additional evaluation requested from abnormal screening. History: Patient is postmenopausal and has history of breast cancer at age 49. Family history of breast cancer in maternal cousin at age 56, breast cancer in maternal cousin at age 47, and breast cancer in maternal cousin at age 46. Combination implant in the right breast, 2016. Mastectomy of the right breast, March 2015. Chemotherapy, September 2014. Malignant MG stereo VAD BX RT of the right breast, August 18, 2014. Malignant US biopsy breast VAD RT of the right breast, August 18, 2014. Breast lift of the left breast. Reconstruction of the right breast. Reductions. Reduction of the left breast. Taking antineoplastic for 1 year. US Breast LT Left complete breast ultrasound includes all four quadrants, the retroareolar region and axilla. Finding demonstrates no cystic or solid lesion seen. Duct ectasia at the posterior nipple. These results were verbally communicated with the patient and result sheet given to the patient on 10/23/21. ASSESSMENT: Probably benign, BI-RAD 3 RECOMMENDATION: Follow-up diagnostic mammogram of the left breast in 6 months.
== END | disposition home or self-care (01) ==
LOC: RADMAMWWP 14:19
PROVIDERS: ATTEND Internal Medicine Hematology & Oncology
DX: R92.1 Mammographic calcification found on diagnostic imaging of breast (principal); N64.89 Other specified disorders of breast; Z85.3 Personal history of malignant neoplasm of breast; Z80.3 Family history of malignant neoplasm of breast; Z78.0 Asymptomatic menopausal state
CPT/HCPCS: 77061; 77065

== ENCOUNTER → 2022-04-24 | Outpatient (CLI) | payer BC ==
--- NOTE | 2022-04-24 10:48 | MM ---
Reason for Exam: Follow-up at short interval from prior study. Last screening mammogram was performed 6 month(s) ago. Patient History: Menarche at age 13. First Full-Term at age 25. Postmenopausal. Breast cancer, right, age 49. 2016, Reduction on the Left side. Reduction. 03/2015, Mastectomy on the Right side. 08/18/2014, Malignant Core Biopsy on the right side. 08/18/2014, Malignant Core Biopsy on the right side. 09/2014, Chemotherapy. Implant on the right side. 2015, Implant on the right side. Maternal cousin had breast cancer, age 56. Maternal cousin had breast cancer, age 47. Maternal cousin had breast cancer, age 46. Prior Study Comparison: 04/11/2020 Left Diagnostic Mammogram, [facility]. 10/20/2020 Left Diagnostic Mammogram, [facility]. 10/23/2021 Left Diagnostic Mammogram, [facility]. Tissue Density: Left: The breast tissue is heterogeneously dense. This may lower the sensitivity of mammography. Findings: Analyzed By CAD. No evidence for distinct nodule or mass. No distortion. Benign calcifications persists. Overall Assessment: Benign, BI-RAD 2 Management: Diagnostic Mammogram of the left breast in 6 months. A clinical breast exam by your physician is recommended on an annual basis and results should be correlated with mammographic findings. This exam should not preclude additional follow-up of suspicious palpable abnormalities. Results were given to the patient verbally at the time of exam. Electronically signed and approved by: John Eagle M.D. Radiologis
== END | disposition home or self-care (01) ==
LOC: RADMAMWWP 08:52
PROVIDERS: ATTEND Internal Medicine Hematology & Oncology
DX: C50.211 Malignant neoplasm of upper-inner quadrant of right female breast (principal); Z78.0 Asymptomatic menopausal state; Z80.3 Family history of malignant neoplasm of breast
CPT/HCPCS: 77061; 77065

== ENCOUNTER → 2023-04-25 | Outpatient (CLI) | payer BC ==
--- NOTE | 2023-04-26 10:30 | MM ---
Reason for Exam: Screening (asymptomatic). Last screening mammogram was performed 12 month(s) ago. Patient History: Menarche at age 13. First Full-Term at age 25. Postmenopausal. Breast cancer, right, age 49. 2016, Reduction on the Left side. Reduction. 03/2015, Mastectomy on the Right side. 08/18/2014, Malignant Core Biopsy on the right side. 08/18/2014, Malignant Core Biopsy on the right side. 09/2014, Chemotherapy. Implant on the right side. 2015, Implant on the right side. Maternal cousin had breast cancer, age 56. Maternal cousin had breast cancer, age 47. Maternal cousin had breast cancer, age 46. Prior Study Comparison: 10/20/2020 Left Diagnostic Mammogram, [facility]. 10/23/2021 Left Diagnostic Mammogram, [facility]. 04/24/2022 Left MG 3D diag mammo w/cad , [facility]. Tissue Density: Left: The breast tissue is heterogeneously dense. This may lower the sensitivity of mammography. Findings: Analyzed By CAD. There is no suspicious group of microcalcifications or new suspicious mass in either breast. Overall Assessment: Benign, BI-RAD 2 Management: Screening Mammogram of both breasts in 1 year. . Patient should continue monthly self-breast exams. A clinical breast exam by your physician is recommended on an annual basis. This exam should not preclude additional follow-up of suspicious palpable abnormalities. Note on Marnie scores and lifetime risk: 1. A Marnie score greater than 3% is considered moderate risk. If this is the case, consider specialist referral to assess eligibility for a risk reducing agent. 2. If overall lifetime risk for the development of breast cancer is 20% or higher, the patient may qualify for future screening with alternating mammogram and breast MRI. Electronically signed and approved by: John Eagle M.D. Radiologis
== END | disposition home or self-care (01) ==
LOC: RADMAMWWP 09:51
PROVIDERS: ATTEND Internal Medicine Hematology & Oncology
DX: Z12.31 Encounter for screening mammogram for malignant neoplasm of breast (principal); C50.211 Malignant neoplasm of upper-inner quadrant of right female breast; I10 Essential (primary) hypertension; E11.9 Type 2 diabetes mellitus without complications; N80.9 Endometriosis, unspecified; Z78.0 Asymptomatic menopausal state; Z80.3 Family history of malignant neoplasm of breast; Z90.11 Acquired absence of right breast and nipple
CPT/HCPCS: 77067

== ENCOUNTER 2023-10-25 18:03 | Emergency (ER) | payer BC ==
[2023-10-25 18:27] VITALS: TEMP 98.4
--- NOTE | 2023-10-25 18:29 | ED ---
General Adult HPI - General Source: patient, RN notes reviewed Mode of arrival: ambulatory Limitations: no limitations <Marychuy Pettit - Last Filed: 10/25/23 18:28> - General Source: patient, RN notes reviewed, old records reviewed <Steven Stark - Last Filed: 10/26/23 07:43> - General Chief complaint: Chest Pain Stated complaint: Chest Pain Time Seen by Provider: 10/25/23 18:28 - History of Present Illness Initial comments: 58-year-old female presents to the emergency department for evaluation of central chest pain. She states that this started today. She also notes some pain in her back. Patient reports that she has been experiencing palpitations for the past few days but the pain in her chest is started today. (Marychuy Pettit) Patient is a 58-year-old female who presents emergency department complaining of chest pain, palpitations. Has past medical history remarkable for hypertension, diabetes, breast cancer. Has significant family medical history of heart disease. States she has been under more stress lately as well. States she began experiencing some palpitations that seem to go towards her back, which then turned into more fransisco chest pain on the front of her chest today. Is not reproducible. Denies nausea, vomiting, radiation of the pain. Denies any diaphoresis. Has no other acute complaints at this time. Was originally evaluated as a quick note. Has no shortness of breath with the pain. (Steven Stark) - Related Data Home Medications Medication Instructions Recorded Confirmed Linagliptin [Tradjenta] 5 mg PO DAILY 09/22/14 10/27/20 Levothyroxine Sodium [Synthroid] 112 mcg PO DAILY 03/05/19 10/27/20 Atorvastatin [Lipitor] 10 mg PO HS 10/21/19 10/27/20 Cholecalciferol (Vitamin D3) 5,000 unit PO DAILY 01/10/20 10/27/20 [Vitamin D3] Losartan-Hctz 50-12.5 mg [Hyzaar 1 tab PO AC-BID 01/10/20 10/27/20 50-12.5] Multivitamins, Thera [Multivitamin 1 tab PO BID 01/10/20 10/27/20 (formulary)] Vit C/E/Zn/Coppr/Lutein/Zeaxan 1 cap PO BID 01/10/20 10/27/20 [Preservision Areds 2 Softgel] metFORMIN HCL ER [Glucophage Xr] 2,000 mg PO PC-SUPPER 01/10/20 10/27/20 Insulin Degludec [Tresiba] 60 units SQ HS 10/27/20 10/27/20 Allergies Allergy/AdvReac Type Severity Reaction Status Date / Time Penicillins Allergy Unknown Verified 10/25/23 18:10 Childhood FLORINA Inhibitors AdvReac Cough Verified 10/25/23 18:10 Review of Systems ROS Other: All systems not noted in ROS Statement are negative. <Marychuy Pettit - Last Filed: 10/25/23 18:28> ROS Other: All systems not noted in ROS Statement are negative. <Steven Stark - Last Filed: 10/26/23 07:43> ROS Statement: Those systems with pertinent positive or pertinent negative responses have been documented in the HPI. Review of Systems: CONST: Denies fever EYES: Denies blurry vision ENT: Denies nasal congestion C/V: Endorses chest pain RESP: Denies shortness of breath GI: Denies abdominal pain : Denies dysuria SKIN: Denies rash. MSK: Denies joint pain. NEURO: Denies headache (Steven Stark) Past Medical History Past Medical History: Cancer, Diabetes Mellitus, Hypertension Additional Past Medical History / Comment(s): BREAST CA 08/2014 History of Any Multi-Drug Resistant Organisms: None Reported Past Surgical History: Section, Orthopedic Surgery Additional Past Surgical History / Comment(s): C-S X2. EXP LAP. PORT-A-CATH 09/2014. Past Anesthesia/Blood Transfusion Reactions: No Reported Reaction Past Psychological History: No Psychological Hx Reported Smoking Status: Never smoker Past Alcohol Use History: Occasional Past Drug Use History: None Reported - Past Family History Father Family Medical History: CVA/TIA Mother Family Medical History: Cancer <Marychuy Pettit - Last Filed: 10/25/23 18:28> General Exam Limitations: no limitations <Marychuy Pettit - Last Filed: 10/25/23 18:28> <Steven Stark - Last Filed: 10/26/23 07:43> - General Exam Comments Initial Comments: Visual Physical Exam Vital signs reviewed General: Well-appearing, nontoxic, no acute distress. Head: Normocephalic, atraumatic Eyes: PERRLA, EOMI ENT: Airway patent Chest: Nonlabored breathing Skin: No visual rash, normal skin tone Neuro: Alert and oriented 3 Musculoskeletal: No gross abnormalities (Marychuy Pettit) General: Appears in no acute distress. HEAD: Normal with no signs of head trauma. EYES: PERRLA, EOMI, conjunctiva normal, no discharge. ENT: Hearing grossly intact, normal oropharynx. RESPIRATORY: Clear breath sounds bilaterally. No wheezes, rales, or rhonchi. C/V: Regular rate and rhythm. S1 and S2 auscultated, no edema, peripheral pulses 2+ and intact throughout ABD: Abd is soft, nontender, nondistended EXT: Normal range of motion, no obvious deformity SKIN: No rashes or lesions observed on exposed skin. NEURO: Alert and oriented x 4. (Steven Stakr) Course Vital Signs 10/25/23 10/25/23 10/26/23 18:07 22:36 02:02 Temperature 98.4 F Pulse Rate 85 70 74 Respiratory 16 18 18 Rate Blood Pressure 122/67 115/71 93/59 O2 Sat by Pulse 99 99 98 Oximetry Medical Decision Making <Marychuy Pettit - Last Filed: 10/25/23 18:28> - Lab Data Result diagrams: 10/25/23 21:44 10/25/23 21:44 - EKG Data -: EKG Interpreted by Me <Steven Stark - Last Filed: 10/26/23 07:43> - Medical Decision Making Quick note performed by Marychuy Pettit PA-C (Marychuy Pettit) Was pt. sent in by a medical professional or institution (RAKESH Nuñez, [employer]GER, urgent c are, hospital, or [facility]...) When possible be specific @ -No Did you speak to anyone other than the patient for history (EMS, parent, family, police, friend...)? What history was obtained from this source @ -No Did you review nursing and triage notes (agree or disagree)? Why? @ -I reviewed and agree with nursing and triage notes Were old charts reviewed (outside hosp., previous admission, EMS record, old EKG, old radiological studies, urgent care reports/EKG's, [facility] records)? Report findings @ -Old charts reviewed Differential Diagnosis (chest pain, altered mental status, abdominal pain women, abdominal pain men, vaginal bleeding, weakness, fever, dyspnea, syncope, head ache, dizziness, GI bleed, back pain, seizure, CVA, palpatations, mental health, musculoskeletal)? @ -Differential Chest Pain: Stable Angina, Unstable Angina, STEMI, NSTEMI Aortic Dissection, Pneumothorax, Musculoskeletal, Esophageal Spasm GERD, Cholecystitis, Pancreatitis, Zoster, this is not meant to be an all-inclusive list. EKG interpreted by me (3pts min.). @ -As above X-rays interpreted by me (1pt min.). @ -Chest x-ray reveals no obvious acute cardiopulmonary process. CT interpreted by me (1pt min.). @ -None done U/S interpreted by me (1pt. min.). @ -None done What testing was considered but not performed or refused? (CT, X-rays, U/S, labs)? Why? @ -None What meds were considered but not given or refused? Why? @ -None Did you discuss the management of the patient with other professionals (professionals i.e. , PA, [employer]ETING MANAGER, lab, RT, psych nurse, social service manager, gritting machine operator, teacher, weapons officer naval activity, case coordinator)? Give summary @ -No Was smoking cessation discussed for >3mins.? @ -No Was critical care preformed (if so, how long)? @ -No Were there social determinants of health that impacted care today? How? (Homelessness, low income, unemployed, alcoholism, drug addiction, tr ansportation, low edu. Level, literacy, decrease access to med. care, correction, rehab)? @ -No Was there de-escalation of care discussed even if they declined (Discuss DNR or withdrawal of care, Hospice)? DNR status @ -No What co-morbidities impacted this encounter? (DM, HTN, Smoking, COPD, CAD, Cancer, CVA, ARF, Chemo, Hep., AIDS, mental health diagnosis, sleep apnea, morbid obesity)? @ -Hypertension, diabetes Was patient admitted / discharged? Hospital course, mention meds given and route, prescriptions, significant lab abnormalities, going to OR and other pertinent info. @ -Based on patient's presentation and physical exam, presents with multiple days of heart palpitations and chest pains. Originally seen as a quick note but workup was not initiated. I evaluated the patient when she was placed in room 15 at approximately 2130. I was present for EKG, which revealed no signs of acute ischemia. We will obtain cardiopulmonary workup. She was in agreement this plan. She will be given aspirin as well as nitroglycerin tablets. Patient states chest pain was basically resolved by the time she got the nitro. Does not believe it did contribute to any resolution of her chest pain. Is feeling well at this time. Laboratory studies unremarkable. Chest x-ray showed no evidence of acute cardiopulmonary process. Patient's laboratory studies remarkable for normal D-dimer, as well as an undetectable troponin and BNP. I updated the patient. She is pain-free at this time. I did offer admission for cardiology evaluation but she would prefer to go home. I did offer her a second troponin which she accepted. Second troponin remains undetectable. She would like to go home at this time. Strict return precautions discussed. I instructed the patient to follow up with their PCP in the next 1-3 days. I explained that the patient should return to the emergency department if they experience any worsening symptoms. Strict return precautions were discussed with the patient. The patient expressed understanding of these instructions. I answered all questions that the patient had. The patient was discharged home in good condition with their prescriptions and follow up information. Undiagnosed new problem with uncertain prognosis? @ -No Drug Therapy requiring intensive monitoring for toxicity (Heparin, Nitro, Insulin, Cardizem)? @ -No Were any procedures done? @ -No Diagnosis/symptom? @ -Atypical chest pain Acute, or Chronic, or Acute on Chronic? @ -Acute Uncomplicated (without systemic symptoms) or Complicated (systemic symptoms)? @ -Uncomplicated Side effects of treatment? @ -None Exacerbation, Progression, or Severe Exacerbation] @ -No Poses a threat to life or bodily function? @ -No (Steven Stark) - Lab Data Lab Results 10/25/23 10/25/23 10/25/23 Range/Units 21:44 21:44 21:44 WBC 9.7 (3.8-10.6) k/uL RBC 4.41 (3.80-5.40) m/uL Hgb 12.9 (11.4-16.0) gm/dL Hct 38.0 (34.0-46.0) % MCV 86.1 (80.0-100.0) fL MCH 29.2 (25.0-35.0) pg MCHC 33.9 (31.0-37.0) g/dL RDW 13.2 (11.5-15.5) % Plt Count 246 (150-450) k/uL MPV 8.9 Neutrophils % 63 % Lymphocytes % 29 % Monocytes % 5 % Eosinophils % 2 % Basophils % 1 % Neutrophils # 6.1 (1.3-7.7) k/uL Lymphocytes # 2.8 (1.0-4.8) k/uL Monocytes # 0.5 (0-1.0) k/uL Eosinophils # 0.2 (0-0.7) k/uL Basophils # 0.1 (0-0.2) k/uL PT 10.4 (10.0-12.5) sec INR 0.9 (<1.2) APTT 25.9 (22.0-30.0) sec D-Dimer 0.27 (<0.60) mg/L FEU Sodium 137 (137-145) mmol/L Potassium 3.6 (3.5-5.1) mmol/L Chloride 101 (98-107) mmol/L Carbon Dioxide 27 (22-30) mmol/L Anion Gap 9 mmol/L BUN 22 H (7-17) mg/dL Creatinine 0.62 (0.52-1.04) mg/dL Est GFR (CKD-EPI)AfAm >90 (>60 ml/min/1.73 sqM) Est GFR (CKD-EPI)NonAf >90 (>60 ml/min/1.73 sqM) Glucose 90 (74-99) mg/dL Calcium 9.8 (8.4-10.2) mg/dL Magnesium 1.8 (1.6-2.3) mg/dL Total Bilirubin 1.5 H (0.2-1.3) mg/dL AST 27 (14-36) U/L ALT 22 (4-34) U/L Alkaline Phosphatase 73 (38-126) U/L Troponin I (0.000-0.034) ng/mL NT-Pro-B Natriuret Pep <20 pg/mL Total Protein 7.3 (6.3-8.2) g/dL Albumin 4.5 (3.5-5.0) g/dL 10/25/23 10/26/23 Range/Units 21:44 00:43 WBC (3.8-10.6) k/uL RBC (3.80-5.40) m/uL Hgb (11.4-16.0) gm/dL Hct (34.0-46.0) % MCV (80.0-100.0) fL MCH (25.0-35.0) pg MCHC (31.0-37.0) g/dL RDW (11.5-15.5) % Plt Count (150-450) k/uL MPV Neutrophils % % Lymphocytes % % Monocytes % % Eosinophils % % Basophils % % Neutrophils # (1.3-7.7) k/uL Lymphocytes # (1.0-4.8) k/uL Monocytes # (0-1.0) k/uL Eosinophils # (0-0.7) k/uL Basophils # (0-0.2) k/uL PT (10.0-12.5) sec INR (<1.2) APTT (22.0-30.0) sec D-Dimer (<0.60) mg/L FEU Sodium (137-145) mmol/L Potassium (3.5-5.1) mmol/L Chloride (98-107) mmol/L Carbon Dioxide (22-30) mmol/L Anion Gap mmol/L BUN (7-17) mg/dL Creatinine (0.52-1.04) mg/dL Est GFR (CKD-EPI)AfAm (>60 ml/min/1.73 sqM) Est GFR (CKD-EPI)NonAf (>60 ml/min/1.73 sqM) Glucose (74-99) mg/dL Calcium (8.4-10.2) mg/dL Magnesium (1.6-2.3) mg/dL Total Bilirubin (0.2-1.3) mg/dL AST (14-36) U/L ALT (4-34) U/L Alkaline Phosphatase (38-126) U/L Troponin I <0.012 <0.012 (0.000-0.034) ng/mL NT-Pro-B Natriuret Pep pg/mL Total Protein (6.3-8.2) g/dL Albumin (3.5-5.0) g/dL - EKG Data EKG Comments: 12-lead Electrocardiogram Interpretation Note EKG was reviewed and interpreted by myself. 12-lead ECG performed at 2133 is interpreted by me as revealing normal sinus rhythm at a rate of 73 beats per minute. Raven is normal. OK interval is 161 ms, QRS duration is 93 ms, QTc is 400 ms.. There were no ST or T wave abnormalities to suggest myocardial ischemia or injury. R wave progression across the precordium was satisfactory. By my interpretation this EKG is non-diagnostic for acute ischemia. (Steven Stark) Disposition <Marychuy Pettit - Last Filed: 10/25/23 18:28> Is patient prescribed a controlled substance at d/c from ED?: No Time of Disposition: 01:48 <Steven Stark - Last Filed: 10/26/23 07:43> Clinical Impression: Atypical chest pain Disposition: HOME SELF-CARE Condition: Good Instructions (If sedation given, give patient instructions): Chest Pain (ED) Referrals: Dionte Rodrigues DO [Primary Care Provider] - 1-2 days
--- NOTE | 2023-10-25 19:41 | XR ---
EXAMINATION TYPE: XR chest 2V DATE OF EXAM: 10/25/2023 7:06 PM CLINICAL INDICATION:Female, 58 years old with history of Chest Pain; [facility] COMPARISON: Chest radiographs from 11/16/2015. TECHNIQUE: XR chest 2V Frontal and lateral views of the chest. FINDINGS: Lungs/Pleura: There is no evidence of pleural effusion, focal consolidation, or pneumothorax. Pulmonary vascularity: Unremarkable. Heart/mediastinum: Cardiomediastinal silhouette is unremarkable. Musculoskeletal: No acute osseous pathology. Calcifications at the insertion of the rotator cuff tend on. Other findings: None IMPRESSION: No acute cardiopulmonary disease/process.
[2023-10-25] MEDS: ASPIRIN 81 MG PO STA (22:06)
[2023-10-25 22:14] LABS: Basophils # (A) 0.1 k/uL (0-0.2); Basophils % (A) 1 %; Eosinophils # (A) 0.2 k/uL (0-0.7); Eosinophils % (A) 2 %; HGB 12.9 gm/dL (11.4-16.0); Lymphocytes # (A) 2.8 k/uL (1.0-4.8); Lymphocytes % (A) 29 %; MCH 29.2 pg (25.0-35.0); MCHC 33.9 g/dL (31.0-37.0); MCV 86.1 fL (80.0-100.0); Mean Platelet Volume 8.9; Monocytes # (A) 0.5 k/uL (0-1.0); Monocytes % (A) 5 %; Neutrophils # (A) 6.1 k/uL (1.3-7.7); Neutrophils % (A) 63 %; Platelet Count 246 k/uL (150-450); RBC 4.41 m/uL (3.80-5.40); RDW 13.2 % (11.5-15.5); WBC 9.7 k/uL (3.8-10.6)
[2023-10-25 22:29] LABS: INR 0.9 (<1.2); Partial Thromboplastin Time 25.9 sec (22.0-30.0); Prothrombin Time 10.4 sec (10.0-12.5)
[2023-10-25 22:32] LABS: ALT 22 U/L (4-34); AST 27 U/L (14-36); African American GFR (CKD) >90 (>60 ml/min/1.73 sqM); Albumin 4.5 g/dL (3.5-5.0); Alkaline Phosphatase 73 U/L (38-126); Anion Gap 9 mmol/L; Blood Urea Nitrogen 22 mg/dL (7-17); Calcium 9.8 mg/dL (8.4-10.2); Carbon Dioxide 27 mmol/L (22-30); Chloride 101 mmol/L (98-107); Glucose 90 mg/dL (74-99); Magnesium 1.8 mg/dL (1.6-2.3); Non-African American GFR(CKD) >90 (>60 ml/min/1.73 sqM); Potassium 3.6 mmol/L (3.5-5.1); Sodium 137 mmol/L (137-145); Total Bilirubin 1.5 mg/dL (0.2-1.3); Total Protein 7.3 g/dL (6.3-8.2)
[2023-10-25] MEDS: NITROGLYCERIN SL TABS 0.4 MG TAB SUBLINGUAL PRN (22:33)
[2023-10-25 22:40] LABS: NT-Pro-B-Type Natriuretic Pept <20 pg/mL
[2023-10-25 22:42] VITALS: RESP 18
[2023-10-26 02:11] VITALS: BP 93/59; PULSE 74
== END 2023-10-26 02:05 | disposition home or self-care (01) ==
LOC: EC 18:03
DX: R07.89 Other chest pain (principal); E11.9 Type 2 diabetes mellitus without complications; I10 Essential (primary) hypertension; Z79.84 Long term (current) use of oral hypoglycemic drugs; Z79.899 Other long term (current) drug therapy; Z79.4 Long term (current) use of insulin; Z88.0 Allergy status to penicillin; Z88.8 Allergy status to other drugs, medicaments and biological substances
CPT/HCPCS: 36415; 71046; 80053; 83735; 83880; 84484; 85025; 85379; 85610; 85730; 93005; 99285

== ENCOUNTER → 2023-11-29 | Outpatient (CLI) | payer BC ==
--- NOTE | 2023-11-29 13:10 | XR ---
EXAMINATION TYPE: XR shoulder complete RT DATE OF EXAM: 11/29/2023 12:59 PM CLINICAL INDICATION:Female, 58 years old with history of M25.511 Pain rt shoulder; [facility] COMPARISON: 10/25/2023 TECHNIQUE: XR shoulder complete RT; examined in AP, internally rotated and scapular Y projections. FINDINGS: Calcification near the insertion of supraspinatus tendon. Mild degeneration changes with os teophyte formation of the distal clavicle. Mild glenoid osteophyte formation. No evidence of acute os seous pathology, joint dislocation, or soft tissue swelling. The remaining portions of the visualize d chest are unremarkable. IMPRESSION: 1. No acute osseous pathology. 2. Mild left shoulder, clavicular and glenohumeral joint arthrosis. 3. Calcifications in the insertion of the supraspinous tendon. Further evaluation of the rotator cuf f can be performed with MRI.
== END | disposition home or self-care (01) ==
LOC: RADXRMAIN 12:45
PROVIDERS: ATTEND Family Medicine
DX: M19.011 Primary osteoarthritis, right shoulder (principal); M67.813 Other specified disorders of tendon, right shoulder

== ENCOUNTER → 2024-04-27 | Outpatient (CLI) | payer BC ==
--- NOTE | 2024-05-15 20:40 | MM ---
Reason for Exam: Screening (asymptomatic). Last screening mammogram was performed 12 month(s) ago. Patient History: Menarche at age 13. First Full-Term at age 25. Postmenopausal. Breast cancer, right, age 49. 2016, Reduction on the Left side. Reduction. 03/2015, Mastectomy on the Right side. 08/18/2014, Malignant Core Biopsy on the right side. 08/18/2014, Malignant Core Biopsy on the right side. 09/2014, Chemotherapy. Implant on the right side. 2016, Implant on the right side. Maternal cousin had breast cancer, age 56. Maternal cousin had breast cancer, age 47. Maternal cousin had breast cancer, age 46. Prior Study Comparison: 10/23/2021 Left Diagnostic Mammogram, [facility]. 04/24/2022 Left MG 3D diag mammo w/cad LT, [facility]. 04/25/2023 Left Screening 3D/Tomosynthesis, [facility]. Tissue Density: Left: The breasts are heterogeneously dense, which may obscure small masses. Findings: A area of asymmetric density central outer aspect of the left breast CC view middle depth as well as along the central inner aspect at a middle depth both appear more defined and incompletely dispersed on 3-D images. These may represent superimposition shadow but further evaluation is recommended. Otherwise, no significant change. Overall Assessment: Incomplete: need additional imaging evaluation, BI-RAD 0 Management: Special View Mammogram of the left breast. Diagnostic Breast Ultrasound of the left breast. Additional views left breast to include spot 3-D CC, 3-D CC rolled, and 3-D lateral views. [facility] will attempt to contact patient to return for supplemental views and ultrasound if indicated. Electronically signed and approved by: Donato Sol M.D. Radiologist
== END | disposition home or self-care (01) ==
LOC: RADMAMWWP 14:02
PROVIDERS: ATTEND Internal Medicine Hematology & Oncology
DX: Z12.31 Encounter for screening mammogram for malignant neoplasm of breast (principal); Z78.0 Asymptomatic menopausal state; Z80.3 Family history of malignant neoplasm of breast; Z90.11 Acquired absence of right breast and nipple
CPT/HCPCS: 77067

== ENCOUNTER → 2024-05-22 | Outpatient (CLI) | payer BC ==
--- NOTE | 2024-05-22 14:22 | MM ---
Reason for Exam: Additional evaluation requested from abnormal screening. Last screening mammogram was performed less than 1 month ago. Patient History: Menarche at age 13. First Full-Term at age 25. Postmenopausal. Breast cancer, right, age 49. 2016, Reduction on the Left side. Reduction. 03/2015, Mastectomy on the Right side. 08/18/2014, Malignant Core Biopsy on the right side. 08/18/2014, Malignant Core Biopsy on the right side. 09/2014, Chemotherapy. Implant on the right side. 2015, Implant on the right side. Maternal cousin had breast cancer, age 56. Maternal cousin had breast cancer, age 47. Maternal cousin had breast cancer, age 46. Prior Study Comparison: 04/24/2022 Left MG 3D diag mammo w/cad LT, [facility]. 04/25/2023 Left Screening 3D/Tomosynthesis, [facility]. 04/27/2024 Left MG 3D scr edward unilateral w/cad., [facility]. Tissue Density: Left: The breasts are heterogeneously dense, which may obscure small masses. Findings: Analyzed By CAD. Postlumpectomy changes redemonstrated right breast. Again noted are changes of prior radiation therapy. Mild skin thickening persists. No evidence for recurrent mass or suspicious cluster of microcalcifications. Overall Assessment: Benign, BI-RAD 2 Management: Diagnostic Mammogram of both breasts in 6 months. . Results were given to the patient verbally at the time of exam. Patient should continue monthly self-breast exams. A clinical breast exam by your physician is recommended on an annual basis. This exam should not preclude additional follow-up of suspicious palpable abnormalities. Note on Marnie scores and lifetime risk: 1. A Marnie score greater than 3% is considered moderate risk. If this is the case, consider specialist referral to assess eligibility for a risk reducing agent. 2. If overall lifetime risk for the development of breast cancer is 20% or higher, the patient may qualify for future screening with alternating mammogram and breast MRI. Electronically signed and approved by: John Eagle M.D. Radiologis
== END | disposition home or self-care (01) ==
LOC: RADMAMWWP 13:34
PROVIDERS: ATTEND Internal Medicine Hematology & Oncology
DX: R92.8 Other abnormal and inconclusive findings on diagnostic imaging of breast
CPT/HCPCS: 77061; 77065

== ENCOUNTER 2024-06-18 09:47 | Day surgery (SDC) | payer BC ==
[2024-06-17 11:43] VITALS: BMI 31.4
[2024-06-18] MEDS: IV FLUID CONTINUATION 1,000 ML IV ONE (10:14)
[2024-06-18 10:19] VITALS: TEMP 97.2
[2024-06-18 10:24] LABS: Glucose,Whole Blood 86 mg/dL (70-110)
[2024-06-18] MEDS: LACTATED RINGERS 1,000 ML IV SCH (10:25)
[2024-06-18] MEDS ORDERED: PROPOFOL 10 MG/ML 20 ML VIAL IV ONE (10:30)
--- NOTE | 2024-06-18 10:55 | P.GSHP ---
History of Present Illness H&P Date: 06/18/24 CHIEF COMPLAINT: Colon screen HISTORY OF PRESENT ILLNESS: The patient is a 59-year-old female who presents for colon screen. Lower endoscopy was offered for further evaluation and management. PAST MEDICAL HISTORY: Please see list. PAST SURGICAL HISTORY: Please see list. MEDICATIONS: Please see list. ALLERGIES: Please see list. SOCIAL HISTORY: No illicit drug use FAMILY HISTORY: No reports of Crohn disease or ulcerative colitis. REVIEW OF ORGAN SYSTEMS: CONSTITUTIONAL: No reports of fevers or chills. PHYSICAL EXAM: VITAL SIGNS: Stable GENERAL: Well-developed pleasant in no acute distress. HEENT: No scleral icterus. Extraocular movements grossly intact. Moist buccal mucosa. NECK: Supple without lymphadenopathy. CHEST: Unlabored respirations. Equal bilateral excursions. CARDIOVASCULAR: Regular rate and rhythm. Distal 2+ pulses. ABDOMEN: Soft, nontender, nondistended. MUSCULOSKELETAL: No clubbing, cyanosis, or edema. ASSESSMENT: 1. Colon screen. PLAN: 1. Recommend proceeding with a lower endoscopy Past Medical History Past Medical History: Cancer, Diabetes Mellitus, Hyperlipidemia, Hypertension, Thyroid Disorder Additional Past Medical History / Comment(s): BREAST CA 08/2014 History of Any Multi-Drug Resistant Organisms: None Reported Past Surgical History: Breast Surgery, Section, Orthopedic Surgery Additional Past Surgical History / Comment(s): C-S X2, EXP LAP, PORT-A-CATH 09/2014, LEFT THUMB JOINT REPAIR, RIGHT MASTECTOMY Past Anesthesia/Blood Transfusion Reactions: No Reported Reaction Past Psychological History: No Psychological Hx Reported Smoking Status: Former smoker Past Alcohol Use History: Occasional Past Drug Use History: None Reported - Past Family History Father Family Medical History: CVA/TIA Mother Family Medical History: Cancer Medications and Allergies Home Medications Medication Instructions Recorded Confirmed Type Linagliptin [Tradjenta] 5 mg PO DAILY 09/22/14 06/18/24 History Levothyroxine Sodium [Synthroid] 112 mcg PO DAILY 03/05/19 06/18/24 History Atorvastatin [Lipitor] 20 mg PO HS 10/21/19 06/18/24 History Multivitamins, Thera [Multivitamin 1 tab PO DAILY 01/10/20 06/18/24 History (formulary)] Vit C/E/Zn/Coppr/Lutein/Zeaxan 1 cap PO BID 01/10/20 06/18/24 History [Preservision Areds 2 Softgel] metFORMIN HCL ER [Glucophage Xr] 2,000 mg PO HS 01/10/20 06/18/24 History Insulin Degludec [Tresiba] 50 units SQ HS 10/27/20 06/18/24 History Cholecalciferol (Vitamin D3) 50 mcg PO DAILY 06/17/24 06/18/24 History [Vitamin D3 (50 Mcg = 2000 Iu)] Losartan/Hydrochlorothiazide 0.5 tab PO BID 06/17/24 06/18/24 History [Losartan-Hctz 100-25 mg Tab] Semaglutide [Ozempic] 1 mg SQ WE 06/17/24 06/18/24 History Allergies Allergy/AdvReac Type Severity Reaction Status Date / Time Penicillins Allergy Unknown Verified 06/18/24 10:07 Childhood FLORINA Inhibitors AdvReac Cough Verified 06/18/24 10:07 Surgical - Exam Vital Signs Temp Pulse Resp BP Pulse Ox 97.2 F L 73 16 132/72 98 06/18/24 10:16 06/18/24 10:16 06/18/24 10:16 06/18/24 10:16 06/18/24 10:16
--- NOTE | 2024-06-18 10:58 | P.PCN ---
Date of Procedure: 06/18/24 Description of Procedure: PREOPERATIVE DIAGNOSIS: Family history of colon cancer Personal history of colon polyp Colonoscopy screening. POSTOPERATIVE DIAGNOSIS: Colonoscopy screening. OPERATION: Colonoscopy to the cecum, ileocecal valve and appendiceal orifice. SURGEON: Lindsay Su MD. ANESTHESIA: MAC. INDICATIONS: The patient is a 60-year-old female who presents for colonoscopy screening. Benefits and risks were described and informed consent was obtained. DESCRIPTION OF PROCEDURE: The patient had undergone Sutab prep. The patient had been brought into the operating room and laid in the left lateral decubitus position. After adequate intravenous sedation, the rectum was examined with 2% lidocaine jelly. No external hemorrhoids were encountered. The rectal tone was within normal limits. No lesions were palpated in the rectal vault. An Olympus colonoscope was advanced until the cecum, ileocecal valve and appendiceal orifice were clearly viewed. The prep was excellent. No scattered diverticulosis was encountered. No colonic polyps were found. No evidence of focal colitis was found. Retroflexion of the scope demonstrated grade 1 internal hemorrhoids without active bleeding or inflammation. The colon was desufflated. The patient had tolerated the procedure well. Withdrawal time was over 6 minutes. FINDINGS: Aronchick preparation quality scale 1 (1-5) Internal hemorrhoids, grade 1 No external prolapsed hemorrhoids. No arteriovenous malformations. No adenomatous polyps. No focal colitis. RECOMMENDATIONS: Lower endoscopy in 5 years, 2028 Plan - Discharge Summary Discharge Rx Participant: No New Discharge Prescriptions: Continue Linagliptin [Tradjenta] 5 mg PO DAILY Levothyroxine Sodium [Synthroid] 112 mcg PO DAILY Atorvastatin [Lipitor] 20 mg PO HS metFORMIN HCL ER [Glucophage XR] 2,000 mg PO HS Vit C/E/Zn/Coppr/Lutein/Zeaxan [Preservision Areds 2 Softgel] 1 cap PO BID Multivitamins, Thera [Multivitamin (formulary)] 1 tab PO DAILY Insulin Degludec [Tresiba] 50 units SQ HS Semaglutide [Ozempic] 1 mg SQ WE Losartan/Hydrochlorothiazide [Losartan-Hctz 100-25 mg Tab] 0.5 tab PO BID Cholecalciferol (Vitamin D3) [Vitamin D3 (50 Mcg = 2000 Iu)] 50 mcg PO DAILY Discharge Medication List Linagliptin [Tradjenta] 5 mg PO DAILY 09/22/14 [History] Levothyroxine Sodium [Synthroid] 112 mcg PO DAILY 03/05/19 [History] Atorvastatin [Lipitor] 20 mg PO HS 10/21/19 [History] Multivitamins, Thera [Multivitamin (formulary)] 1 tab PO DAILY 01/10/20 [History] Vit C/E/Zn/Coppr/Lutein/Zeaxan [Preservision Areds 2 Softgel] 1 cap PO BID 01/10/20 [History] metFORMIN HCL ER [Glucophage XR] 2,000 mg PO HS 01/10/20 [History] Insulin Degludec [Tresiba] 50 units SQ HS 10/27/20 [History] Cholecalciferol (Vitamin D3) [Vitamin D3 (50 Mcg = 2000 Iu)] 50 mcg PO DAILY 06/17/24 [History] Losartan/Hydrochlorothiazide [Losartan-Hctz 100-25 mg Tab] 0.5 tab PO BID 06/17/24 [History] Semaglutide [Ozempic] 1 mg SQ WE 06/17/24 [History] Follow up Appointment(s)/Referral(s): Lindsay Su MD [STAFF PHYSICIAN] - As Needed Patient Instructions/Handouts: Moderate Sedation (GEN) Activity/Diet/Wound Care/Special Instructions: Repeat colonoscopy in 5 years, 2028 Discharge Disposition: HOME SELF-CARE
[2024-06-18 11:03] VITALS: BP 148/86; PULSE 77; RESP 16
== END 2024-06-18 11:50 | disposition home or self-care (01) ==
LOC: ORWHC2ENDO 09:47
PROVIDERS: ATTEND Surgery Plastic and Reconstructive Surgery
DX: Z12.11 Encounter for screening for malignant neoplasm of colon (principal); K64.0 First degree hemorrhoids; Z80.0 Family history of malignant neoplasm of digestive organs; Z86.0100 Personal history of colon polyps, unspecified; E11.9 Type 2 diabetes mellitus without complications; E78.5 Hyperlipidemia, unspecified; I10 Essential (primary) hypertension; E07.9 Disorder of thyroid, unspecified; Z79.890 Hormone replacement therapy; Z79.4 Long term (current) use of insulin; Z79.84 Long term (current) use of oral hypoglycemic drugs; Z79.85 Long-term (current) use of injectable non-insulin antidiabetic drugs; Z79.899 Other long term (current) drug therapy; Z85.3 Personal history of malignant neoplasm of breast; Z87.891 Personal history of nicotine dependence
CPT/HCPCS: J2704; G0105; 45378